=== PATIENT | female | born 2000 | race Caucasian/White ===

== ENCOUNTER 2022-04-29 07:48 | Emergency (ER) | payer SELFPAY ==
[2022-04-29 07:51] VITALS: BP 110/76; PULSE 101; RESP 16; TEMP 36.7; O2SAT 98; BMI 16.5
[2022-04-29 08:17] VITALS: BP 105/69; PULSE 81; RESP 14; O2SAT 97
--- NOTE | 2022-04-29 08:35 | W.ED.URI ---
HPI - URI/Sore Throat General: Chief Complaint: Upper Respiratory Infection Stated Complaint: congestion/leg rash Time Seen by Provider: 04/29/22 07:58 History of Present Illness: 22-year-old female who comes in with a 3-day history of green nasal drainage and associated cough. She is coughing up green sputum as well. She has had headaches, frontal in nature which she rates as moderate. She has had low-grade fevers. She does have body aches and fatigue. She denies ill contacts. She is also got bites on her lower extremities, the right calf and left foot that she was worried could be herpes lesions. No nausea, vomiting or diarrhea. Associated symptoms: Reports chills, fever(s), headache(s) and nasal congestion; Deny chest pain, diarrhea, nausea or vomiting Review of Systems Const: Reports: fever(s), chills, body aches and malaise Eyes: Denies: change in vision ENMT: Reports: throat pain, nasal discharge and nasal congestion; Denies: odynophagia Card: Denies: chest pain Resp: Reports: productive cough and change in phlegm color; Denies: wheezing GI: Denies: nausea, vomiting or diarrhea : Reports: irregular period and metrorrhagia Musc: Denies: neck pain, back pain or extremity pain Skin/Breast: Reports: rash and new lesions Neuro: Reports: headache(s) Physical Exam Const: COMMON NORMALS: no acute distress, patient oriented x3, no limitations and alert HENMT: COMMON NORMALS: normocephalic, TM's normal bilaterally and moist oral mucous membranes HEAD & SCALP: normocephalic FACE & SINUS: sinus tenderness frontal and maxillary and Facial tenderness on exam of face and sinuses TYMPANIC MEMBRANE: TM's normal bilaterally THROAT: other (Oropharynx erythematous with slight enlargement of the tonsils but no exuda) Eye: COMMON NORMALS: Equal, round and reactive pupils present and EOMs intact bilaterally PUPIL: Yes Equal, round and reactive pupils present Neck/C-Spine: COMMON NORMALS: full ROM and no JVD OTHER: Bilateral anterior cervical lymphadenopathy Resp: COMMON NORMALS: normal respiratory effort, No retractions, No use of accessory muscles and clear to auscultation bilaterally AUSCULTATION: clear to auscultation bilaterally Cardio: COMMON NORMALS: no JVD, regular rate and regular rhythm RATE: regular rate RHYTHM: regular rhythm GI: COMMON NORMALS: Normal to inspection, nondistended, normoactive bowel sounds present, Soft to palpation and non-tender PALPATION: Yes Soft to palpation Extremity: OTHER: Several erythematous insect bite appearing lesions on the dorsal surface of the left foot as well as on the posterior right calf area. There is 1 cm of surrounding erythema and induration. Neuro: COMMON NORMALS: patient oriented x3 SENSORIUM/ORIENTATION: Yes alert Course Vital Signs: Vital signs: Vital Signs Temperature 98.1 F 04/29/22 07:51 Pulse Rate 81 04/29/22 08:17 Respiratory Rate 14 04/29/22 08:17 Blood Pressure 105/69 04/29/22 08:17 Pulse Oximetry 97 04/29/22 08:17 Oxygen Delivery Me thod 04/29/22 08:17 MDM - URI/Sore Throat Medical Decision Making Patient presents with purulent nasal discharge as well as a cough with productive yellow sputum. She has bilateral maxillary and frontal sinus tenderness consistent with sinusitis. She does have insect bite appearing lesions on her left foot and right calf which do appear to have a allergic reaction component as well as possibly an infectious component. We will treat her with doxycycline which should treat both the URI as well as the potential allergic reaction. I am also can put her on a few days of prednisone. I also instructed her that she needs to take Mucinex DM twice daily. Differential Diagnosis Likely upper respiratory infection, sinusitis, viral infection, bronchitis, influenza and pharyngitis Discharge Plan Discharge Patient Disposition: Home Clinical Impression: Sinusitis, Insect bites Condition: Stable Prescriptions: New doxycycline hyclate 100 mg tablet 100 mg PO BID 10 Days Qty: 20 0RF prednisone 50 mg tablet 50 mg PO DAILY 3 Days Qty: 3 0RF Discharge Orders: Discharge ED (Routine); Ordered 04/29/22 Ordered By: Delfina Mtz Discharge Diet: Advance as tolerated Discharge Activity: Resume usual activity Patient Instructions: Insect Bites and Stings, Sinusitis (ED), Opioid Safety, Pain Management Activity Restrictions/Additional Instructions: Take Mucinex DM twice daily. Make sure you are drinking plenty of fluids. You can take Tylenol and ibuprofen as needed for pain and fever. Take the antibiotics twice daily until gone. Take the prednisone daily in the morning. You can take Benadryl 4 times daily as needed for itching. Return for symptoms are worsening. As far as her ongoing periods, you need to follow-up with the primary care doctor or assistant food service director in regards to this. Stand Alone Forms: Work/School Release Coding Level of Care Code ED Apron Man for Reyg Fwd Exam Detailed
--- NOTE | 2022-05-01 10:11 | DCPLANNER ---
manager environmental health had message to speak with patient about getting established with a primary care physician. manager environmental health called phone number [phone] - patient stated that she would call nurse case management back to discuss this. Patient did not want to speak at this time.
== END 2022-04-29 09:06 | disposition home or self-care (01) ==
PROVIDERS: Emergency Provider Emergency Medicine
DX: J01.80 Other acute sinusitis (principal); S90.862A Insect bite (nonvenomous), left foot, initial encounter; S80.861A Insect bite (nonvenomous), right lower leg, initial encounter; W57.XXXA Bitten or stung by nonvenomous insect and other nonvenomous arthropods, initial encounter
CPT/HCPCS: 99283

== ENCOUNTER 2022-05-03 02:08 | Emergency (ER) | payer SELFPAY ==
[2022-05-03 02:16] VITALS: BP 110/69; PULSE 108; RESP 20; TEMP 37; O2SAT 95; BMI 18.3
--- NOTE | 2022-05-03 02:34 | XRR_ITS ---
PROCEDURE INFORMATION: Exam: XR Chest Exam date and time: 05/03/2022 2:39 AM Age: 22 years old Clinical indication: Cough and fever; Patient HX: Cough with congestion and fever; Additional info: Cough fever SOB TECHNIQUE: Imaging protocol: Radiologic exam of the chest. Views: 1 view. Total images: 236 COMPARISON: No relevant prior studies available. FINDINGS: Lungs: Unremarkable. No consolidation. Pleural spaces: Unremarkable. No pleural effusion. No pneumothorax. Heart/Mediastinum: Unremarkable. No cardiomegaly. Bones/joints: Unremarkable. XR/XR chest 1V portable [id number] IMPRESSION: No acute findings.
--- NOTE | 2022-05-03 02:35 | ED_ITS ---
HPI - Fever General: Chief Complaint: Fever Stated Complaint: Fever Congestion Nausea Time Seen by Provider: 05/03/22 02:19 Source: patient History of Present Illness: 22-year-old female seen 4 days ago and diagnosed with sinusitis. She is placed on doxycycline and prednisone. She presents this morning with a 102 fever at home for which she took Tylenol. She notes that an hour later she woke up in a pool of sweat. She is complaining of sore throat, c ontinued cough and congestion with some shortness of breath, and sputum production. She has a Nexplanon implant MD elicited complaint: fever Context: sick contacts Associated symptoms: Reports chills, cough, headache(s), nasal congestion, nausea, night sweats, rhinorrhea, short of breath and sore throat; Deny abdominal pain, chest pain, diarrhea or vomiting Treatments prior to arrival fever: ibuprofen, cold medicine and other Review of Systems Const: Reports: fever(s), chills and night sweats ENMT: Reports: throat pain and nasal congestion Card: Denies: chest pain Resp: Reports: dyspnea and productive cough; Denies: wheezing GI: Reports: nausea; Denies: abdominal pain, vomiting or diarrhea Musc: Denies: neck pain Neuro: Reports: headache(s) [facility] Female Reproductive History: Date of last menstrual period: 05/03/22 Physical Exam Const: COMMON NORMALS: no acute distress GENERAL APPEARANCE: cooperative; not ill appearing and not frail appearing HENMT: COMMON NORMALS: normocephalic, atraumatic, external ears normal, TM's normal bilaterally and Normal external nose present HEAD & SCALP: normocephalic and atraumatic FACE & SINUS: normal facial exam and face symmetric NOSE: Normal external nose present and Abnormal mucous membranes and turbinates present boggy and erythematous EXTERNAL EAR: Yes external ears normal TYMPANIC MEMBRANE: TM's normal bilaterally THROAT: posterior oropharynx abnormal cobblestoning, edema and erythema; no exudates Eye: COMMON NORMALS: Equal, round and reactive pupils present and EOMs intact bilaterally PUPIL: Yes Equal, round and reactive pupils present Neck/C-Spine: GENERAL: Yes trachea midline Chest: CHEST: Yes Symmetrical chest wall rise Resp: COMMON NORMALS: normal respiratory effort, No retractions, No use of accessory muscles and clear to auscultation bilaterally AUSCULTATION: clear to auscultation bilaterally Cardio: COMMON NORMALS: regular rhythm RATE: tachycardic RHYTHM: regular rhythm GI: COMMON NORMALS: Normal to inspection, nondistended, normoactive bowel sounds present Extremity: COMMON NORMALS: no pedal edema Neuro: ALPHONSE COMA SCALE: document GCS findings [place] coma scale eye opening: Spontaneous [place] coma scale verbal response: Orientated [place] coma scale motor response: Obey commands [place] coma scale total score: 15 SENSORY EXAM: Yes extremities (intact) Psych: COMMON NORMALS: speech normal SPEECH: Yes normal speech Skin: COMMON NORMALS: no rashes or lesions noted GENERAL SKIN EXAM: no rashes or lesions noted Course Vital Signs: Vital signs: Vital Signs Temperature 98.6 F 05/03/22 02:16 Pulse Rate 108 H 05/03/22 02:16 Respiratory Rate 20 H 05/03/22 02:16 Blood Pressure 110/69 05/03/22 02:16 Pulse Oximetry 95 05/03/22 02:16 MDM - Fever Medical Decision Making Chest x-ray is clear. Swabs are negative. Lab Data Laboratory Results Influenza Type A Ag negative (Negative) 05/03/22 02:46 Influenza Type B Ag negative (Negative) 05/03/22 02:46 SARS-CoV-2 Ag (Rapid) negative (Negative) 05/03/22 02:46 Group A Strep Rapid Negative (Negative) 05/03/22 02:46 Discharge Plan Discharge Patient Disposition: Home Clinical Impression: Upper respiratory infection Condition: Stable Prescriptions: New pseudoephedrine HCl 30 mg tablet 30 mg PO Q6H PRN (Reason: nasal congestion) Qty: 14 0RF codeine-guaifenesin 10-100 mg/5 mL liquid 7.5 ml PO Q6H PRN (Reason: cough) Qty: 120 0RF azithromycin 250 mg tablet See Rx Instructions .ROUTE .COMPLEX Qty: 6 0RF Rx Instructions: For 250 mg dose pack: take 500 mg today (day 1), then 250 mg for 4 days (days 2-5) No Action doxycycline hyclate 100 mg tablet 100 mg PO BID 10 Days Qty: 20 0RF Discharge Orders: Discharge ED (Routine); Ordered 05/03/22 Ordered By: Joe Fishman Patient Instructions: Upper Respiratory Infection (ED), Acute Bronchitis (ED), Opioid Safety, Pain Management Activity Restrictions/Additional Instructions: See your doctor next week. Return for increasing shortness of breath despite treatment. Coding Level of Care Code ED Manufacturing Test Engineer for Chg Fwd Exam Comprehensive
[2022-05-03 03:05] LABS: Rapid Strep A Test Negative (Negative)
[2022-05-03 03:14] LABS: Influenza A by IFA negative (Negative); Influenza B by IFA negative (Negative); SARS Covid-2 Antigen negative (Negative)
[2022-05-03 03:54] VITALS: BP 97/65; PULSE 80; RESP 18; O2SAT 100
== END 2022-05-03 03:56 | disposition home or self-care (01) ==
PROVIDERS: Emergency Provider Emergency Medicine
DX: J06.9 Acute upper respiratory infection, unspecified (principal); Z20.822 Contact with and (suspected) exposure to COVID-19
CPT/HCPCS: 71045; 87081; 87426; 87804; 87880; 99284